=== PATIENT | female | born 1955 | race Caucasian/White ===

== ENCOUNTER 2017-03-17 09:22 | Emergency (ER) | payer OTHER ==
[~2017-03-17] VITALS: Ht 162.6 cm; Wt 68.1 kg
[~2017-03-17 09:22] MED LIST: AMBIEN10 MG PO; CADUET 10/101 TABLET PO; NAPROSYN500 MG PO; PROZAC20 MG PO; TRAZODONE HCL50 MG PO; TYLOX1 CAPSULE PO
[2017-03-17 09:48] LABS: MCH 32.1 PG (29.0-34.0); MCHC 33.6 G/DL (30.0-36.0); MCV 95.7 FL (83-99); MEAN PLAT.VOLUME 9.2 uM^3 (9.5-12.4); PLATELET COUNT 309 K/uL (156-360); RBC DIS.WIDTH-CV 12.4 % (11.8-14.6); RBC DIS.WIDTH-SD 43.9 % (39-53); RED BLOOD COUNT 4.39 M/uL (3.80-5.20); WHITE BLOOD COUNT 6.6 K/uL (4.1-10.2)
[2017-03-17 10:01] LABS: CHLORIDE 105 mEq/L (99-109); POTASSIUM 4.3 mEq/L (3.7-5.4); SODIUM 140 mEq/L (136-147)
[2017-03-17 10:02] LABS: GLUCOSE 112 mg/dL (70-99)
[2017-03-17 10:04] LABS: ANION GAP 9 MEQ/L (2-14)
[2017-03-17 10:06] LABS: GFR ESTIMATE (CALCULATED) > 59 mL/min/
[2017-03-17 10:07] LABS: UREA NITROGEN (BUN) 9 mg/dL (9-23)
[2017-03-17 10:13] LABS: TROP-I INTERPRETATION NEGATIVE; TROPONIN-I < 0.01 ng/mL (0.0-0.30)
[2017-03-17 13:43] LABS: D-DIMER ELISA 0.58 mg/L FEU (< 0.57)
[2017-03-17 13:50] LABS: TROP-I INTERPRETATION NEGATIVE; TROPONIN-I < 0.01 ng/mL (0.0-0.30)
[2017-03-17 17:40] VITALS: BP 118/71
[2017-03-17] MEDS ORDERED: OXYCODONE HCL15 MG PO (17:52)
[2017-03-17] MEDS ORDERED: TIZANIDINE HCL4 MG PO (17:53)
[2017-03-17] MEDS ORDERED: GABAPENTIN300 MG PO (17:53)
== END 2017-03-17 17:52 | disposition home or self-care (01) ==
LOC: EME 09:22
PROVIDERS: Nurse Practitioner Family
DX: R07.89 Other chest pain (principal); R91.8 Other nonspecific abnormal finding of lung field; I10 Essential (primary) hypertension; E78.5 Hyperlipidemia, unspecified; F32.9 Major depressive disorder, single episode, unspecified; G47.00 Insomnia, unspecified; F17.200 Nicotine dependence, unspecified, uncomplicated; Z98.84 Bariatric surgery status
CPT/HCPCS: 71020; 71275; 80048; 84484; 85027; 85379; 93005; 99281; 99285

== ENCOUNTER 2017-04-23 20:22 | Emergency (ER) | payer OTHER ==
[~2017-04-23] VITALS: Ht 160 cm; Wt 71.8 kg
[~2017-04-23 20:22] MED LIST changes: +GABAPENTIN300 MG PO; +OXYCODONE HCL15 MG PO; +TIZANIDINE HCL4 MG PO
[2017-04-23 23:07] VITALS: BP 130/70
== END 2017-04-23 23:09 | disposition home or self-care (01) ==
LOC: EME 20:22
PROC: 0HQNXZZ Repair Left Foot Skin, External Approach (ICD-10-PCS; principal; 2017-04-23)
DX: S91.112A Laceration without foreign body of left great toe without damage to nail, initial encounter (principal); W26.0XXA Contact with knife, initial encounter; I10 Essential (primary) hypertension; F17.200 Nicotine dependence, unspecified, uncomplicated
CPT/HCPCS: 73660; 99281; 99284

== ENCOUNTER 2018-05-11 15:24 | Emergency (ER) | payer BC ==
[~2018-05-11] VITALS: Ht 160 cm; Wt 76.5 kg
[2018-05-11 16:46] LABS: HEMATOCRIT 37.7 % (36.0-46.0); HEMOGLOBIN 13.2 G/DL (11.9-15.5); MCH 33.5 PG (29.0-34.0); MCV 95.7 FL (83-99); PLATELET COUNT 256 K/uL (156-360); RBC DIS.WIDTH-CV 12.6 % (11.8-14.6); RBC DIS.WIDTH-SD 43.8 % (39-53); RED BLOOD COUNT 3.94 M/uL (3.80-5.20); WHITE BLOOD COUNT 6.6 K/uL (4.1-10.2)
[2018-05-11 16:59] LABS: CHLORIDE 104 mEq/L (99-109); POTASSIUM 3.9 mEq/L (3.7-5.4); SODIUM 137 mEq/L (136-147)
[2018-05-11 17:00] LABS: GLUCOSE 105 mg/dL (70-99)
[2018-05-11 17:04] LABS: GFR ESTIMATE (CALCULATED) > 59 mL/min/
[2018-05-11 17:05] LABS: UREA NITROGEN (BUN) 11 mg/dL (9-23)
[2018-05-11 17:07] LABS: TROP-I INTERPRETATION NEGATIVE; TROPONIN-I < 0.01 ng/mL (0.0-0.30)
[2018-05-11 20:30] VITALS: BP 114/71
== END 2018-05-11 20:31 | disposition home or self-care (01) ==
LOC: EME 15:24
PROVIDERS: Emergency Medicine
DX: M54.12 Radiculopathy, cervical region (principal); I10 Essential (primary) hypertension; E78.5 Hyperlipidemia, unspecified; J45.909 Unspecified asthma, uncomplicated; F32.9 Major depressive disorder, single episode, unspecified; F17.200 Nicotine dependence, unspecified, uncomplicated; Z85.9 Personal history of malignant neoplasm, unspecified; Z98.84 Bariatric surgery status; Z88.6 Allergy status to analgesic agent
CPT/HCPCS: 70450; 71046; 80048; 83880; 84484; 85027; 93005; 93971; 99281; 99284